=== PATIENT | male | born 1955 | race Caucasian/White ===

== ENCOUNTER → 2016-12-29 | Outpatient (CLI) | payer OTHER, BC ==
[~2016-12-29] VITALS: Ht 182.9 cm; Wt 84.0 kg
[~2016-12-29] MED LIST: ADVAIR; ALBUTEROL; ALIGN; ALIGN4 MG PO; ALLEGRA ALLERG180 MG PO; ALLERGY RELIE15.8 ML BOTH NARES; ALTACE1.25 M1 PO; BAYER ASPIRIN325 M1 PO; CENTRUM SILVER1 EAC1 PO; COQ-10100 MG PO; DIFLUCAN200 MG PO; EFFEXOR XR37.5 MG PO; ERGOCALCIF50000 UNIT PO; GLUCOPHAGE1000 MG PO; GLUCOTROL XL5 MG PO; IMIPRAMINE HCL25 MG PO; LACTOSE FAS9000 UNI2 PO; LO-DOSE ASPIRIN81 M2 PO; MECLIZINE HCL25 MG PO; METFORMIN HCL; METFORMIN HCL500 MG PO; NASAL ALLERGY16.9 ML BOTH NARES; NASONEX17 GM BOTH NARES; NITROGLYCERIN0.4 MG SL; NITROSTAT0.4 MG SL; NORCO 5/3251 TABLET PO; NORVASC5 MG PO; OMEPRAZOLE40 M1 PO; PRAVASTATIN SOD80 MG PO; PROVENTIL HFA6.7 GM IH; RAMIPRIL10 MG PO; REFRESH TEARS15 ML BOTH EYES; SULFAZINE500 M1 PO; SULFAZINE500 MG PO; TRILIPIX; TYLENOL REGULA325 MG PO; VOLTAREN 1% GE100 GM TP; ZANTAC150 MG PO
[2016-12-29 08:08] VITALS: BP 136/83
[2016-12-29 08:48] LABS: ANION GAP 10 MEQ/L (2-14); CHLORIDE 101 MEQ/L (99-109); POTASSIUM 3.6 MEQ/L (3.7-5.4); SAMPLE HEMOLYSIS CHECK 0; SAMPLE ICTERIC CHECK 0; SAMPLE LIPEMIA CHECK 0; SODIUM 140 MEQ/L (136-147)
[2016-12-29 08:53] LABS: GFR ESTIMATE (CALCULATED) > 59 mL/min/; GLUCOSE 153 mg/dL (70-99); UREA NITROGEN (BUN) 13 mg/dL (9-23)
[2016-12-29 11:49] LABS: POINT-OF-CARE METER ID UU13113675
== END | disposition home or self-care (01) ==
LOC: OPR 07:30
PROVIDERS: Orthopaedic Surgery Sports Medicine
DX: M25.512 Pain in left shoulder (principal); M75.02 Adhesive capsulitis of left shoulder; M75.42 Impingement syndrome of left shoulder; M75.101 Unspecified rotator cuff tear or rupture of right shoulder, not specified as traumatic; M25.511 Pain in right shoulder; M19.011 Primary osteoarthritis, right shoulder; M19.012 Primary osteoarthritis, left shoulder; M75.102 Unspecified rotator cuff tear or rupture of left shoulder, not specified as traumatic; E11.9 Type 2 diabetes mellitus without complications; I25.10 Atherosclerotic heart disease of native coronary artery without angina pectoris; Z79.899 Other long term (current) drug therapy
CPT/HCPCS: 70140; 73221; 80048; 82948; J2250; J3010

== ENCOUNTER → 2017-05-31 | Outpatient (CLI) | payer OTHER, BC | END | disposition home or self-care (01) | LOC: RES 12:47 | DX: R06.00 Dyspnea, unspecified (principal) | CPT/HCPCS: 94010; 94070; 94726; 94729 ==

== ENCOUNTER 2018-04-07 10:18 | Emergency (ER) | payer OTHER, BC ==
[~2018-04-07] VITALS: Ht 182.9 cm; Wt 86.2 kg
[2018-04-07 10:45] LABS: BASOPHIL (%) 0.6 % (0-1); EOSINOPHIL (%) 2.7 % (0-5); EOSINOPHIL COUNT 0.2 K/uL (0-0.3); HEMATOCRIT 43.5 % (38.0-50.0); HEMOGLOBIN 15.3 G/DL (12.5-16.6); IMMATURE GRANULOCYTE (%) 0.3 % (0.0-0.7); LYMPHOCYTE (%) 25.3 % (15-42); LYMPHOCYTE COUNT 1.7 K/uL (1.0-2.8); MCH 30.6 PG (29.0-34.0); MCHC 35.2 G/DL (30.0-36.0); MONOCYTE (%) 13.1 % (3-12); MONOCYTE COUNT 0.9 K/uL (0-0.8); NEUTROPHIL COUNT 3.8 K/uL (1.8-6.4); PLATELET COUNT 208 K/uL (156-360); RBC DIS.WIDTH-CV 11.9 % (11.8-14.6); RBC DIS.WIDTH-SD 37.6 % (39-53); WHITE BLOOD COUNT 6.6 K/uL (4.1-10.2)
[2018-04-07 10:54] LABS: ALBUMIN 4.5 g/dL (3.2-4.8); CHLORIDE 101 mEq/L (99-109); POTASSIUM 3.6 mEq/L (3.7-5.4); SODIUM 139 mEq/L (136-147)
[2018-04-07 10:56] LABS: GLUCOSE 242 mg/dL (70-99); TOTAL PROTEIN 7.1 g/dL (6.4-8.3)
[2018-04-07 10:58] LABS: TOTAL BILIRUBIN 2.1 mg/dL (0.0-1.0)
[2018-04-07 11:00] LABS: ALKALINE PHOSPHATASE 70 IU/L (3-129); CREATININE 0.9 mg/dL (0.6-1.3); GFR ESTIMATE (CALCULATED) > 59 mL/min/ (58.99-99999)
[2018-04-07 11:01] LABS: UREA NITROGEN (BUN) 14 mg/dL (9-23)
[2018-04-07 11:02] LABS: AST (GOT) 27 IU/L (2-34)
[2018-04-07 11:03] LABS: ALT (GPT) 38 IU/L (3-49)
[2018-04-07 11:06] LABS: TROP-I INTERPRETATION NEGATIVE; TROPONIN-I < 0.01 ng/mL (0.0-0.30)
[2018-04-07 11:10] LABS: D-DIMER ELISA < 150.00 ng/mLDDU (<230)
[2018-04-07 12:55] VITALS: BP 125/83
== END 2018-04-07 13:02 | disposition left against medical advice (07) ==
LOC: EME 10:18
PROVIDERS: Emergency Medicine
DX: R68.2 Dry mouth, unspecified (principal); R07.9 Chest pain, unspecified; J44.9 Chronic obstructive pulmonary disease, unspecified; R06.02 Shortness of breath; I10 Essential (primary) hypertension; E78.5 Hyperlipidemia, unspecified; I25.2 Old myocardial infarction; Z95.5 Presence of coronary angioplasty implant and graft; Z79.82 Long term (current) use of aspirin; E11.9 Type 2 diabetes mellitus without complications; Z79.84 Long term (current) use of oral hypoglycemic drugs; Z53.20 Procedure and treatment not carried out because of patient's decision for unspecified reasons
CPT/HCPCS: 71046; 80053; 84484; 85025; 85379; 93005; 94640; 99281; 99284

== ENCOUNTER 2018-05-15 13:07 | Observation (INO) | payer OTHER, BC ==
[~2018-05-15] VITALS: Ht 182.9 cm; Wt 85.7 kg
[2018-05-15 14:16] LABS: HEMATOCRIT 42.3 % (38.0-50.0); MCH 30.3 PG (29.0-34.0); MCHC 35.5 G/DL (30.0-36.0); MCV 85.5 FL (86-99); PLATELET COUNT 225 K/uL (156-360); RBC DIS.WIDTH-CV 11.8 % (11.8-14.6); RBC DIS.WIDTH-SD 36.3 % (39-53); RED BLOOD COUNT 4.95 M/uL (4.00-5.50); WHITE BLOOD COUNT 10.6 K/uL (4.1-10.2)
[2018-05-15 14:29] LABS: CHLORIDE 105 mEq/L (99-109); SODIUM 139 mEq/L (136-147)
[2018-05-15 14:31] LABS: GLUCOSE 195 mg/dL (70-99)
[2018-05-15 14:35] LABS: CREATININE 0.9 mg/dL (0.6-1.3); GFR ESTIMATE (CALCULATED) > 59 mL/min/ (58.99-99999)
[2018-05-15 14:36] LABS: UREA NITROGEN (BUN) 12 mg/dL (9-23)
[2018-05-15 15:36] LABS: TROP-I INTERPRETATION NEGATIVE; TROPONIN-I < 0.01 ng/mL (0.0-0.30)
[2018-05-15] MEDS ORDERED: BENZONATATE100 MG PO (17:09)
[2018-05-15] MEDS ORDERED: PROAIR HFA8.5 GM IH (17:12)
[2018-05-15] MEDS ORDERED: VENTOLIN HFA18 GM IH (17:15)
[2018-05-15] MEDS ORDERED: SYMBICORT60 INHALAT IH (17:18)
[2018-05-15] MEDS ORDERED: SERTRALINE HCL50 MG PO (17:20)
[2018-05-15] MEDS ORDERED: PREVACID30 MG PO (17:22)
[2018-05-15] MEDS ORDERED: CLARITIN10 MG PO (17:22)
[2018-05-15] MEDS ORDERED: NITROSTAT0.4 MG SL (17:24)
[2018-05-15] MEDS ORDERED: METFORMIN HCL500 MG PO (17:24)
[2018-05-15 20:22] LABS: TROP-I INTERPRETATION NEGATIVE; TROPONIN-I < 0.01 ng/mL (0.0-0.30)
[2018-05-15 20:24] VITALS: BP 142/75
[2018-05-16 01:01] VITALS: BP 158/78
[2018-05-16 02:59] LABS: TROP-I INTERPRETATION NEGATIVE; TROPONIN-I < 0.01 ng/mL (0.0-0.30)
[2018-05-16 04:29] VITALS: BP 138/79
[2018-05-16 07:32] VITALS: BP 111/68
[2018-05-16 11:59] VITALS: BP 132/75
== END 2018-05-16 16:13 | disposition home or self-care (01) ==
LOC: EME 13:07 → EDOF 16:05 → ENRESERV 16:06 → 4SOUTH 20:12
PROVIDERS: Internal Medicine; Physician Assistant
DX: R07.9 Chest pain, unspecified (principal); I10 Essential (primary) hypertension; R00.2 Palpitations; E11.9 Type 2 diabetes mellitus without complications; R06.09 Other forms of dyspnea; I25.10 Atherosclerotic heart disease of native coronary artery without angina pectoris; Z95.5 Presence of coronary angioplasty implant and graft; E78.5 Hyperlipidemia, unspecified; K22.70 Barrett's esophagus without dysplasia; M45.9 Ankylosing spondylitis of unspecified sites in spine; L40.50 Arthropathic psoriasis, unspecified; K21.9 Gastro-esophageal reflux disease without esophagitis; E06.3 Autoimmune thyroiditis; I25.2 Old myocardial infarction; M79.7 Fibromyalgia; G43.909 Migraine, unspecified, not intractable, without status migrainosus; M19.90 Unspecified osteoarthritis, unspecified site; F41.9 Anxiety disorder, unspecified; Z82.49 Family history of ischemic heart disease and other diseases of the circulatory system; Z83.3 Family history of diabetes mellitus; Z81.8 Family history of other mental and behavioral disorders; Z83.49 Family history of other endocrine, nutritional and metabolic diseases; Z83.79 Family history of other diseases of the digestive system; Z88.5 Allergy status to narcotic agent; Z88.8 Allergy status to other drugs, medicaments and biological substances; Z91.048 Other nonmedicinal substance allergy status; Z91.018 Allergy to other foods
CPT/HCPCS: 71046; 80048; 82948; 84484; 85027; 93005; 99281; 99285; G0378; J1644; J1815

== ENCOUNTER 2018-05-21 03:00 | Emergency (ER) | payer OTHER, BC ==
[~2018-05-21] VITALS: Ht 180.3 cm; Wt 83.6 kg
[~2018-05-21 03:00] MED LIST changes: +BENZONATATE100 MG PO; +CLARITIN10 MG PO; +PREVACID30 MG PO; +PROAIR HFA8.5 GM IH; +SERTRALINE HCL50 MG PO; +SYMBICORT60 INHALAT IH; +VENTOLIN HFA18 GM IH
[2018-05-21 04:07] LABS: HEMATOCRIT 41.9 % (38.0-50.0); HEMOGLOBIN 14.7 G/DL (12.5-16.6); MCH 29.8 PG (29.0-34.0); MCHC 35.1 G/DL (30.0-36.0); PLATELET COUNT 214 K/uL (156-360); RBC DIS.WIDTH-CV 11.9 % (11.8-14.6); RBC DIS.WIDTH-SD 36.3 % (39-53); RED BLOOD COUNT 4.93 M/uL (4.00-5.50); WHITE BLOOD COUNT 11.5 K/uL (4.1-10.2)
[2018-05-21 04:09] LABS: APPEARANCE CLEAR ((CLEAR)); BILIRUBIN NEGATIVE; BLOOD SMALL; COLOR STRAW ((YELLOW)); GLUCOSE (STRIP) NEGATIVE; KETONES NEGATIVE; LEUKOCYTES NEGATIVE; NITRITE NEGATIVE; PROTEIN (STRIP) NEGATIVE; SPECIFIC GRAVITY 1.009 (1.000-1.030); UROBILINOGEN 0.2 MG/DL (0.2-1.0)
[2018-05-21 04:20] LABS: CHLORIDE 102 mEq/L (99-109); POTASSIUM 3.8 mEq/L (3.7-5.4); SODIUM 137 mEq/L (136-147)
[2018-05-21 04:21] LABS: BACTERIA RARE /HPF; EPITHELIAL CELLS RARE /HPF; MUCUS TRACE /LPF; RED BLOOD CELLS 0-5 /HPF (0-5); WHITE BLOOD CELLS 0-5 /HPF (0-5)
[2018-05-21 04:22] LABS: GLUCOSE 124 mg/dL (70-99)
[2018-05-21 04:26] LABS: CREATININE 0.8 mg/dL (0.6-1.3); GFR ESTIMATE (CALCULATED) > 59 mL/min/ (58.99-99999)
[2018-05-21 04:27] LABS: UREA NITROGEN (BUN) 15 mg/dL (9-23)
[2018-05-21 04:29] LABS: CREATINE KINASE 188 IU/L (1-294)
[2018-05-21] MEDS ORDERED: ATARAX,VISTARIL50 MG PO (04:49)
[2018-05-21 05:13] VITALS: BP 147/92
== END 2018-05-21 05:22 | disposition home or self-care (01) ==
LOC: EME 03:00
PROVIDERS: Physician Assistant
DX: H04.123 Dry eye syndrome of bilateral lacrimal glands (principal); K11.9 Disease of salivary gland, unspecified; G47.00 Insomnia, unspecified; E11.9 Type 2 diabetes mellitus without complications; Z79.84 Long term (current) use of oral hypoglycemic drugs; E78.5 Hyperlipidemia, unspecified; I25.2 Old myocardial infarction; E06.3 Autoimmune thyroiditis; Z95.5 Presence of coronary angioplasty implant and graft; K22.70 Barrett's esophagus without dysplasia; J45.909 Unspecified asthma, uncomplicated; K58.9 Irritable bowel syndrome, unspecified; Z79.82 Long term (current) use of aspirin; Z88.5 Allergy status to narcotic agent
CPT/HCPCS: 80048; 81003; 82550; 85027; 99281; 99284; Q0177